=== PATIENT | female | born 1980 | race Caucasian/White ===

== ENCOUNTER 2023-11-22 16:28 | Emergency (ER) | payer OTHER ==
[~2023-11-22] VITALS: Ht 162.6 cm; Wt 97.6 kg
--- OUTSIDE RECORDS SUMMARY | 2023-11-22 16:30 | XMS ---
PreManage Notification: RAJANI SIMON Security [employer] Baggage Events No recent Security Events currently on file CRITERIA MET - PDMP CARE PROVIDERS Aleksandr Hdez DO [facility] Current PHONE: Unknown Severino has no Care Guidelines for this patient. [facility] VISIT COUNT (12 MO.) 1 KRYSTEN Gomez TOTAL 1 NOTE: Visits indicate total known visits. ED/UCC VISIT TRACKING (12 MO.) 11/22/2023 16:28 KRYSTEN Solitario OR TYPE: Emergency COMPLAINT: - RT ANKLE INJURY INPATIENT VISIT TRACKING (12 MO.) No inpatient visits to display in this time frame [id number]
[2023-11-22 19:04] VITALS: BP 125/91
== END 2023-11-22 18:55 | disposition home or self-care (01) ==
LOC: ED 16:28
DX: S96.911A Strain of unspecified muscle and tendon at ankle and foot level, right foot, initial encounter (principal); M79.7 Fibromyalgia; G43.809 Other migraine, not intractable, without status migrainosus; F43.10 Post-traumatic stress disorder, unspecified; F41.0 Panic disorder [episodic paroxysmal anxiety]; M19.90 Unspecified osteoarthritis, unspecified site; Z88.0 Allergy status to penicillin; Z88.8 Allergy status to other drugs, medicaments and biological substances; Z88.2 Allergy status to sulfonamides; X58.XXXA Exposure to other specified factors, initial encounter
CPT/HCPCS: 73610; 73630; 99283-25; A9270